=== PATIENT | female | born 1950 | race Caucasian/White ===

== ENCOUNTER 2020-02-25 11:39 | Emergency (ER) | payer MEDICARE ==
[2020-02-25] MEDS ORDERED: Bacitracin Oint 1 GM U/D Packet TOP ONE (12:09)
[2020-02-25] MEDS ORDERED: Lidocaine 1% 20 ML MDV INJECT ONE (12:09)
--- NOTE | 2020-02-25 12:11 | EDM.PDOC ---
ED HPI GENERAL MEDICAL PROBLEM - General Chief Complaint: Upper Extremity Injury/Pain Stated Complaint: L THUMB INJURY Time Seen by Provider: 02/25/20 12:10 Source of Information: Reports: Patient History Limitations: Reports: No Limitations - History of Present Illness INITIAL COMMENTS - FREE TEXT/NARRATIVE: pt was splitting wood and got her left thumb caught in the splitter. She has a laceration of the thumb and her finger nail is avulsed. Onset: Today, Sudden Duration: Hour(s): Location: Reports: Upper Extremity, Left Associated Symptoms: Reports: No Other Symptoms - Related Data Allergies Allergy/AdvReac Type Severity Reaction Status Date / Time No Known Allergies Allergy Verified 02/25/20 11:49 Home Meds: Home Meds NK [No Known Home Meds] 02/25/20 [History] Past Medical History - Past Surgical History GI Surgical History: Reports: Appendectomy Female Surgical History: Reports: Tubal Ligation Social & Family History - Tobacco Use Smoking Status *Q: Never Smoker Review of Systems - Review of Systems Review Of Systems: See Below Constitutional: Reports: No Symptoms Eyes: Reports: No Symptoms Ears: Reports: No Symptoms Nose: Reports: No Symptoms Mouth/Throat: Reports: No Symptoms Respiratory: Reports: No Symptoms Cardiovascular: Reports: No Symptoms GI/Abdominal: Reports: No Symptoms Genitourinary: Reports: No Symptoms Musculoskeletal: Reports: Other (laceration of the thumb. ) ED EXAM, GENERAL - Physical Exam Exam: See Below Free Text/Narrative:: pt arrived with a thumb injury from a wood splitter. Exam Limited By: No Limitations General Appearance: Alert Extremities: Other (pt has a avulsion injry to the left thumb. She caught her glove in the splitter. The nail was avulsed loose and the tip of th tumb was peeled b ack. A xray was obtained which showed a tiny chip off of the tuft. She has normal sensation and active bleeding. ) Course - Vital Signs Last Recorded V/S: Last Vital Signs Temp 36.1 C 02/25/20 11:55 Pulse 87 02/25/20 11:55 Resp 14 02/25/20 11:55 BP 128/69 02/25/20 11:55 Pulse Ox 97 02/25/20 11:55 - Orders/Labs/Meds Meds: Medications Discontinued Medications Generic Name Dose Route Start Last Admin Trade Name Freq PRN Reason Stop Dose Admin Acetaminophen 650 mg 02/25/20 12:24 02/25/20 12:32 Tylenol PO 02/25/20 12:25 650 mg NOW ONE Administration Bacitracin 1 dose 02/25/20 12:09 02/25/20 12:23 Bacitracin Oint 1 Gm TOP 02/25/20 12:10 1 dose ONETIME ONE Administration Cephalexin 1,000 mg 02/25/20 13:09 02/25/20 13:18 Keflex PO 02/25/20 13:10 1,000 mg ONETIME ONE Administration Lidocaine HCl 20 ml 02/25/20 12:09 02/25/20 12:23 Xylocaine 1% INJECT 02/25/20 12:10 20 ml ONETIME ONE Administration Oxycodone/Acetaminophen 1 tab 02/25/20 12:09 02/25/20 12:37 Percocet 325-5 Mg PO 02/25/20 12:10 Not Given ONETIME ONE - Re-Assessments/Exams Free Text/Narrative Re-Assessment/Exam: 02/25/20 13:16 the wound was cleansed well after it was infiltrated with lidocaine and a finger block was placed. The entire nail was avulsed off and the tip of the finger. The nail was tacked down with 4-0 prolene. The 1.25 inch laceration which was tammi ragged was closed in a layered fashion with 4-0 prolene. and 5-0 chromic. The side of the nail was tacked to a piece of skin along the nail edge. Pt ws informed that she would definitely loose her nail. Pt was dressed with bacatracin and placed on keflex 500mg. She was adfvised to use tylenol for pain and she was given 8 norco 5/325. She will see Dr Sierra on Friday and he will redress the wound at that time. Departure - Departure Time of Disposition: 13:04 Disposition: Home, Self-Care 01 Condition: Fair Clinical Impression: Avulsion of nail, Thumb laceration - Discharge Information Instructions: Traumatic Finger Amputation Referrals: PCP,None [Primary Care Provider] - Apollo Sierra MD [Physician] - Forms: ED Department Discharge Care Plan Goals: Dr. Sierra Friday at 3:20 PM at [facility] keep dry. dressing will be changed on Friday. Sepsis Event Note - Evaluation Sepsis Screening Result: No Definite Risk - Focused Exam Date Exam was Performed: 02/28/20 Time Exam was Performed: 18:31
[2020-02-25] MEDS: Acetaminophen/oxyCODONE 325-5 MG Tab PO ONE ×2 (12:22→12:37)
[2020-02-25] MEDS ORDERED: Acetaminophen 325 MG Tab PO ONE (12:24)
--- NOTE | 2020-02-25 12:48 | CR ---
Fingers Thumb Lt FA CLINICAL HISTORY: Laceration injury FINDINGS: There is soft tissue disruption in the distal thumb. Just beyond the tuft is a small opacity which is likely a small chip fracture or avulsion IMPRESSION: Laceration Small chip or avulsion off the tuft of the distal phalanx
[2020-02-25] MEDS ORDERED: Cephalexin 250 MG Cap PO ONE (13:09)
== END 2020-02-25 13:51 | disposition home or self-care (01) ==
LOC: JP.ED 11:39
DX: S61.112A Laceration without foreign body of left thumb with damage to nail, initial encounter (principal); W26.8XXA Contact with other sharp object(s), not elsewhere classified, initial encounter
CPT/HCPCS: 11730; 12041; 73140; 99283; A9270; J2001

== ENCOUNTER 2020-03-13 03:24 | Emergency (ER) | payer MEDICARE ==
--- NOTE | 2020-03-13 04:20 | EDM.PDOC ---
ED HPI GENERAL MEDICAL PROBLEM - General Chief Complaint: Flank Pain Stated Complaint: BACK PAIN Time Seen by Provider: 03/13/20 04:00 Source of Information: Reports: Patient History Limitations: Reports: No Limitations - History of Present Illness INITIAL COMMENTS - FREE TEXT/NARRATIVE: 69-year-old female usually healthy developed a fairly sudden left flank pain that radiates around to the left lower quadrant at 10 PM last night. It is difficult to get comfortable. No fever chills, denies vomiting, has not had this pain in the past. No dysuria or urgency. Onset: Sudden Duration: Hour(s): (6 hours ago) Location: Reports: Other (Left flank) Quality: Reports: Sharp, Stabbing Associated Symptoms: Reports: No Other Symptoms. Denies: Fever/Chills Left Flank Pain Score (Numeric/FACES): 8 - Related Data Allergies Allergy/AdvReac Type Severity Reaction Status Date / Time No Known Allergies Allergy Verified 03/13/20 03:51 Home Meds: Home Meds NK [No Known Home Meds] 02/25/20 [History] Past Medical History - Past Surgical History GI Surgical History: Reports: Appendectomy Female Surgical History: Reports: Tubal Ligation Social & Family History - Tobacco Use Smoking Status *Q: Never Smoker Second Hand Smoke Exposure: No - Caffeine Use Caffeine Use: Reports: Coffee - Recreational Drug Use Recreational Drug Use: No ED ROS GENERAL - Review of Systems Review Of Systems: See Below Constitutional: Denies: Fever HEENT: Reports: No Symptoms Respiratory: Denies: Shortness of Breath Cardiovascular: Denies: Chest Pain GI/Abdominal: Reports: Abdominal Pain (Some pain radiating around the left lower abdomen) : Reports: Flank Pain Musculoskeletal: Reports: No Symptoms (Left side) Skin: Reports: No Symptoms Neurological: Reports: No Symptoms ED EXAM, GENERAL - Physical Exam Exam: See Below Exam Limited By: No Limitations General Appearance: Alert, No Apparent Distress (Looks uncomfortable but not distressed) Eye Exam: Bilateral Eye: EOMI Head: Atraumatic Neck: Non-Tender Respiratory/Chest: No Respiratory Distress, Lungs Clear Cardiovascular: Regular Rate, Rhythm GI/Abdominal: Soft, Non-Tender Back Exam: No: CVA Tenderness (R), CVA Tenderness (L) Extremities: Normal Inspection Neurological: Alert, Oriented Psychiatric: Anxious Course - Vital Signs Last Recorded V/S: Last Vital Signs Temp 97.9 F 03/13/20 03:48 Pulse 76 03/13/20 03:48 Resp 14 03/13/20 03:48 BP 142/83 H 03/13/20 03:48 Pulse Ox 96 03/13/20 03:48 - Orders/Labs/Meds Labs: Laboratory Tests 03/13/20 Range/Units 04:47 Urine Color Yellow (YELLOW) Urine Appearance Slightly cloudy A (CLEAR) Urine pH 6.0 (5.0-8.0) Ur Specific [place] >= 1.030 (1.008-1.030) Urine Protein 30 H (NEGATIVE) mg/dL Urine Glucose (UA) Negative (NEGATIVE) mg/dL Urine Ketones Negative (NEGATIVE) mg/dL Urine Occult Blood Moderate H (NEGATIVE) Urine Nitrite Negative (NEGATIVE) Urine Bilirubin Negative (NEGATIVE) Urine Urobilinogen 0.2 (0.2-1.0) EU/dL Ur Leukocyte Esterase Negative (NEGATIVE) Urine RBC 30-40 H (0-5) Urine WBC 0-5 (0-5) Ur Epithelial Cells Few Amorphous Sediment Not seen Urine Bacteria Few Urine Mucus Few - Re-Assessments/Exams Free Text/Narrative Re-Assessment/Exam: 03/13/20 04:14 An abdomen and pelvis CT without contrast was obtained. 03/13/20 05:[address] and her pain was gone. CT scan showed peripelvic cysts in the kidneys and a 9 mm stone in the upper pole of the right kidney but no acute obstruction obvious. UA showed 30-40 RBCs but no infection. She was observed for an additional 30 minutes and the pain did not recur. I think this patient should have a recheck of her urine in the next 1 to 2 weeks and if the hematuria is persistent and ultrasound of the kidney or second CT with urogram and IV contrast would be recommended. 03/13/20 05:26 IMPRESSION: 1. There is suspected moderate wall thickening present in the rectosigmoid colon. Assessment with barium enema or colonoscopy is recommended. Above impression was discussed with the patient, she has an appointment with Dr. Sierra today for suture removal and she can check on her colonoscopy schedule to see if she is due. Departure - Departure Time of Disposition: 05:40 Disposition: Home, Self-Care 01 Clinical Impression: Acute left flank pain Hematuria Qualifiers: Hematuria type: unspecified type Qualified Code(s): R31.9 - Hematuria, unspecified - Discharge Information Instructions: Flank Pain, Adult, Hematuria, Adult Referrals: Leanna Martines PA-C [Primary Care Provider] - Forms: ED Department Discharge Care Plan Goals: Recheck urine in 1 to 2 weeks to make sure hematuria resolves, if it is persistent more work-up is needed such as ultrasound of your kidney or additional CT scan with contrast. Recheck sooner if pain is recurring or you develop other concerns. Sepsis Event Note - Evaluation Sepsis Screening Result: No Definite Risk - Focused Exam Vital Signs: Vital Signs Temp Pulse Resp BP Pulse Ox 03/13/20 03:48 97.9 F 76 14 142/83 H 96 Date Exam was Performed: 03/13/20 Time Exam was Performed: 06:06
--- NOTE | 2020-03-13 04:49 | CRLCT ---
INDICATION: Sudden onset left flank pain TECHNIQUE: CT Abdomen and pelvis without i.v. contrast. Coronal and sagittal reformats were obtained. COMPARISON: None FINDINGS: Lower chest: Unremarkable. Liver: Unremarkable. Spleen: Unremarkable. Pancreas: Unremarkable. Gallbladder: A small 4 mm calcified gallstone is noted. Kidney: Parapelvic cysts are present within the renal sinus bilaterally. 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 This is a 9 mm stone present in the upper pole of the left kidney. Adrenal: Unremarkable. Bowel: There is suspected moderate wall thickening present in the rectosigmoid colon. Previous appendectomy noted with no significant appendiceal stump identified. Vascular: Unremarkable. Lymph: Several calcified lymph nodes are present measuring up to 7 mm are seen adjacent to the SMA. Peritoneum: Unremarkable. No pneumoperitoneum is seen. No significant ascites is noted. Pelvis: Unremarkable. Soft tissue: Unremarkable. Bone: Unremarkable for age. IMPRESSION: 1. There is suspected moderate wall thickening present in the rectosigmoid colon. Assessment with barium enema or colonoscopy is recommended. Dictated by Vitaliy Gardner MD @ 03/13/2020 4:48:06 AM Please note that all CT scans at this facility use dose modulation, iterative reconstruction, and/or weight-based dosing when appropriate to reduce radiation dose to as low as reasonably achievable. Dictated by: Vitaliy Gardner MD @ 03/13/2020 04:48:16 (Electronically Signed)
== END 2020-03-13 05:45 | disposition home or self-care (01) ==
LOC: JP.ED 03:24
DX: R10.9 Unspecified abdominal pain (principal); R31.9 Hematuria, unspecified
CPT/HCPCS: 74176; 81001; 99283; 99284-25